=== PATIENT | male | born 1995 | race African-American/Black ===

== ENCOUNTER 2021-09-25 12:45 | Emergency (ER) | payer BC ==
[~2021-09-25] VITALS: Ht 175.3 cm; Wt 97.5 kg
[2021-09-25 12:55] VITALS: BP_SYST 147
[2021-09-25] MEDS ORDERED: KETOROLAC TROMETHAMINE 60 MG/2 ML VIAL IM ONE (13:30)
[2021-09-25] MEDS ORDERED: HYDROcodone/ACETAMIN 10-325 MG TAB PO ONE (13:30)
[2021-09-25 13:41] LABS: BASOPHILS % (AUTO) 0.3 % (0.0-2.0); EOSINOPHILS % (AUTO) 0.3 % (0.0-4.0); HEMATOCRIT 39.5 % (36-54); HEMOGLOBIN 13.3 g/dL (14.0-18.0); LYMPHOCYTES # (AUTO) 0.8 K/uL (1.0-5.5); LYMPHOCYTES % (AUTO) 14.2 % (20.5-51.5); MEAN CORPUSCULAR HEMOGLOBIN 29 pg (27-31); MEAN CORPUSCULAR HGB CONC 34 % (32-36); MEAN CORPUSCULAR VOLUME 85 fL (79.0-98.0); MONOCYTES # (AUTO) 0.7 K/uL (0.0-1.0); MONOCYTES % (AUTO) 12.6 % (1.7-9.3); NEUTROPHILS # (AUTO) 4.1 K/uL (1.8-7.7); NEUTROPHILS % (AUTO) 72.6 % (40.0-70.0); PLATELET COUNT (AUTO) 171 K/uL (130-430); RED BLOOD CELL COUNT(AUTO) 4.63 MIL/uL (4.2-6.2); RED CELL DISTRIBUTION WIDTH 14.3 % (9.0-15.0); WHITE BLOOD COUNT (AUTO) 5.6 K/uL (4.8-10.8)
[2021-09-25 13:53] LABS: CALCIUM 9.1 mg/dL (8.4-11.0); CREATININE 1.29 mg/dL (0.55-1.30); POTASSIUM 4.3 mmol/L (3.5-5.1)
[2021-09-25 14:09] LABS: ALBUMIN 4.2 g/dL (3.4-4.8); C-REACTIVE PROTEIN QUANT 0.4 mg/dL (0-0.5); TOTAL BILIRUBIN 1.1 mg/dL (0.0-1.0)
[2021-09-25 14:34] LABS: CKMB RELATIVE INDEX 0.2 (0.0-2.9); CREATINE KINASE MB 1.8 ng/mL (0-3.6)
[2021-09-25] MEDS ORDERED: CYCL10TA24 PO (15:07)
[2021-09-25] MEDS ORDERED: ACET325T53 PO (15:07)
== END 2021-09-25 15:21 | disposition home or self-care (01) ==
LOC: SED 12:45
DX: S39.011A Strain of muscle, fascia and tendon of abdomen, initial encounter (principal); R74.01 Elevation of levels of liver transaminase levels; M62.82 Rhabdomyolysis; Z79.899 Other long term (current) drug therapy; X50.0XXA Overexertion from strenuous movement or load, initial encounter; Y93.B9 Activity, other involving muscle strengthening exercises; Y92.89 Other specified places as the place of occurrence of the external cause; Y99.8 Other external cause status
CPT/HCPCS: 99283; 80053; 82550; 82553; 85025; 86140; 36415; 96372; J1885

== ENCOUNTER 2021-10-05 14:20 | Emergency (ER) | payer BC ==
[~2021-10-05] VITALS: Ht 175.3 cm; Wt 97.5 kg
[~2021-10-05 14:20] MED LIST: ACET325T53 PO; CYCL10TA24 PO
[2021-10-05 14:25] VITALS: BP_SYST 138
--- NOTE | 2021-10-05 14:25 | NUR ---
Patient to ER bed 5 to gown for evaluation. Side rails up. Report given to ZAMZAM MAGAÑA.
--- NOTE | 2021-10-05 14:34 | NUR ---
ER DR. SHEETS EXAMINING PT
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
[2021-10-05] MEDS ORDERED: NAPR-1172 PO (15:07)
--- NOTE | 2021-10-05 15:15 | NUR ---
DC INSTRUCTIONS GIVEN TO PT AND DISCUSSED BY DR SHEETS. QUESTIONS ANSWERED. NO DISTRESS NOTED. STABLE FOR DC HOME
== END 2021-10-05 15:16 | disposition home or self-care (01) ==
LOC: SED 14:20
DX: S83.91XA Sprain of unspecified site of right knee, initial encounter (principal); Z79.899 Other long term (current) drug therapy; W21.01XA Struck by football, initial encounter; Y93.61 Activity, american tackle football; Y92.89 Other specified places as the place of occurrence of the external cause; Y99.8 Other external cause status
CPT/HCPCS: 73564; 99283

== ENCOUNTER 2021-11-18 14:35 | Emergency (ER) | payer BC ==
[~2021-11-18] VITALS: Ht 175.3 cm; Wt 97.5 kg
[~2021-11-18 14:35] MED LIST changes: +NAPR-1172 PO
[2021-11-18 14:43] VITALS: BP_SYST 119
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
[2021-11-18] MEDS ORDERED: IBUP-1971 PO (17:09)
[2021-11-18] MEDS ORDERED: HYDR-3917 PO (17:09)
--- NOTE | 2021-11-18 17:10 | NUR ---
SEEN AND EVALUATED BY DR MARTINEZ IN TRIAGE ROOM
--- NOTE | 2021-11-18 17:15 | NUR ---
Patient given written and verbal discharge instructions and verbalizes understanding. ER MD discussed with patient the results and treatment provided. Patient in stable condition. ID arm band removed. Rx of NORCO, IBUPROFEN given. Patient educated on pain management and to follow up with PMD. Pain Scale 0/10. Opportunity for questions provided and answered. Medication side effect fact sheet provided.
== END 2021-11-18 17:15 | disposition home or self-care (01) ==
LOC: SED 14:35
DX: S76.211A Strain of adductor muscle, fascia and tendon of right thigh, initial encounter (principal); S76.212A Strain of adductor muscle, fascia and tendon of left thigh, initial encounter; Z79.899 Other long term (current) drug therapy; W22.8XXA Striking against or struck by other objects, initial encounter; Y93.02 Activity, running; Y92.89 Other specified places as the place of occurrence of the external cause; Y99.8 Other external cause status
CPT/HCPCS: 99282